=== PATIENT | female | born 1950 | race Two or more races ===

== ENCOUNTER → 2019-09-25 13:32 | Outpatient (CLI) | payer OTHER ==
[~2019-09-25 13:32] MED LIST: ADVIL ALLERGY S1 TAB; ASA81 MG; BENICAR20 MG; CELEBREX50 MG; CLONAZEPAM0.125 MG/T; CLONAZEPAM2 MG; CLONAZEPAM2 MG PO; KETO10TA2 PO; LOVASTATIN PO; NEURONTIN300 MG; NORVASC5 MG; ORPH100T PO; PANADOL EXTRA500 MG; PREVACID15 MG; PREVACID30 MG; SYNTHROID88 MCG; TRAMADOL HCL25 GM
== END | disposition home or self-care (01) ==
LOC: LAB 13:32
DX: M54.5 Low back pain (principal); Z01.810 Encounter for preprocedural cardiovascular examination; I10 Essential (primary) hypertension; E03.8 Other specified hypothyroidism; I87.2 Venous insufficiency (chronic) (peripheral); K46.9 Unspecified abdominal hernia without obstruction or gangrene; Z12.31 Encounter for screening mammogram for malignant neoplasm of breast

== ENCOUNTER 2019-10-15 22:40 | Emergency (ER) | payer OTHER ==
[~2019-10-15] VITALS: Ht 170.2 cm; Wt 79.4 kg
[~2019-10-15 22:40] MED LIST changes: -ASA81 MG; -BENICAR20 MG; -CLONAZEPAM2 MG; -CLONAZEPAM2 MG PO; -LOVASTATIN PO; -NEURONTIN300 MG; -NORVASC5 MG; -PREVACID30 MG; -SYNTHROID88 MCG
[2019-10-15] MEDS ORDERED: ASA81 MG (22:45)
[2019-10-15] MEDS ORDERED: NEURONTIN300 MG (22:45)
[2019-10-15] MEDS ORDERED: NORVASC5 MG ×2 (22:46→22:51)
[2019-10-15] MEDS ORDERED: BENICAR20 MG (22:46)
[2019-10-15] MEDS ORDERED: LOVASTATIN PO (22:47)
[2019-10-15] MEDS ORDERED: SYNTHROID88 MCG (22:47)
[2019-10-15] MEDS ORDERED: PREVACID30 MG (22:47)
[2019-10-15] MEDS ORDERED: CLONAZEPAM2 MG (22:52)
[2019-10-16] MEDS ORDERED: CLONAZEPAM2 MG PO (04:09)
== END 2019-10-16 04:16 | disposition home or self-care (01) ==
LOC: ER 22:40
DX: R42 Dizziness and giddiness (principal)

== ENCOUNTER → 2020-09-14 | Outpatient (CLI) | payer OTHER ==
[~2020-09-14] MED LIST changes: +ASA81 MG; +BENICAR20 MG; +CLONAZEPAM2 MG; +CLONAZEPAM2 MG PO; +LOVASTATIN PO; +NEURONTIN300 MG; +NORVASC5 MG; +PREVACID30 MG; +SYNTHROID88 MCG
== END | disposition home or self-care (01) ==
LOC: OFIC 805 15:30
PROVIDERS: ATTEND Otolaryngology
DX: R04.0 Epistaxis (principal)

== ENCOUNTER 2020-09-22 14:39 | Outpatient (CLI) | payer OTHER | END 2020-09-22 15:30 | disposition home or self-care (01) | LOC: OFIC 805 14:39 | PROVIDERS: ATTEND Otolaryngology | DX: R09.81 Nasal congestion (principal); R04.0 Epistaxis ==

== ENCOUNTER → 2020-12-09 | Outpatient (CLI) | payer OTHER | END | disposition home or self-care (01) | LOC: OFIC 805 09:51 | PROVIDERS: ATTEND Otolaryngology | DX: R42 Dizziness and giddiness (principal); R09.81 Nasal congestion; R04.0 Epistaxis ==